=== PATIENT | female | born 1995 | race Caucasian/White ===

== ENCOUNTER 2018-10-23 17:42 | Emergency (ER) | payer SELFPAY ==
--- NOTE | 2018-10-23 18:32 | EDM.PDOC ---
ED HPI GENERAL MEDICAL PROBLEM - General Chief Complaint: Gastrointestinal Problem Stated Complaint: WEAK,THROWING UP/ABSCESSED TOOTH Time Seen by Provider: 10/23/18 18:22 Source of Information: Reports: Patient History Limitations: Reports: No Limitations - History of Present Illness INITIAL COMMENTS - FREE TEXT/NARRATIVE: Patient is a 23-year-old female who presents to the ED complaining of diarrhea, nausea vomiting, and abscess to the right lower molar. States she's had gastroenteritis symptoms for the past 2 days. Symptoms are improving. States she called into work today thus is requesting a doctor's note. She has been drinking fluids with no further nausea or vomiting. In addition she has a tooth that is fractured off at the base of the gumline. Area is tender and swollen. She has no appointment scheduled with a dentist as of yet. Patient denies any fever, abdominal pain, dysuria, hematuria, bloody stool, bloody emesis, sore throat, difficulty swallowing, sinus congestion, runny nose, headache, nuchal rigidity, rash, and/or any additional complaints. Duration: Waxing/Waning Right Lower Tooth/Teeth Pain Score (Numeric/FACES): 9 - Related Data Allergies Allergy/AdvReac Type Severity Reaction Status Date / Time No Known Allergies Allergy Verified 07/19/18 12:24 Home Meds: Home Meds Ondansetron [Zofran ODT] 4 mg PO Q6H PRN #10 tab.dis 10/23/18 [Rx] Penicillin V Potassium 500 mg PO Q6HR #40 tab 10/23/18 [Rx] Past Medical History - Past Health History Medical/Surgical History: Denies Medical/Surgical History [employer] History: Reports: Social & Family History - Tobacco Use Smoking Status *Q: Never Smoker Second Hand Smoke Exposure: No - Caffeine Use Caffeine Use: Reports: Coffee - Recreational Drug Use Recreational Drug Use: No ED ROS GENERAL - Review of Systems Review Of Systems: ROS reveals no pertinent complaints other than HPI. ED EXAM, GI/ABD - Physical Exam Exam: See Below Exam Limited By: No Limitations General Appearance: Alert, WD/WN, No Apparent Distress Ears: Hearing Grossly Normal Nose: Normal Inspection Throat/Mouth: Normal Inspection, Normal Voice, No Airway Compromise, Other (31 tooth is broken off at the base with swelling along the gumline and tenderness present. No uvula deviation. No difficulty swallowing. No change in voice noted. ) Head: Atraumatic, Normocephalic Neck: Normal Inspection, Supple, Non-Tender, Full Range of Motion. No: Carotid Bruit, Lymphadenopathy (L) Respiratory/Chest: No Respiratory Distress, Lungs Clear, Normal Breath Sounds, No Accessory Muscle Use, Chest Non-Tender Cardiovascular: Normal Peripheral Pulses, Regular Rate, Rhythm, No Murmur GI/Abdominal Exam: Normal Bowel Sounds, Soft, Non-Tender, No Organomegaly, No Distention Back Exam: Normal Inspection Neurological: Alert, Oriented, CN II-XII Intact, Normal Cognition, No Motor/ Sensory Deficits Psychiatric: Normal Affect, Normal Mood Skin Exam: Warm, Dry, Intact, Normal Color, No Rash Course - Vital Signs Last Recorded V/S: Last Vital Signs Temp 98.6 F 10/23/18 18:40 Pulse 74 10/23/18 18:40 Resp 16 10/23/18 18:40 BP 94/70 10/23/18 18:40 Pulse Ox 97 10/23/18 18:40 - Re-Assessments/Exams Free Text/Narrative Re-Assessment/Exam: Patient request a doctor's note for today. In addition her examination was benign minus the infected tooth to the right lower jawline. I will discharge patient home with instructions for gastroenteritis and also tooth abscess. Prescription for penicillin and Zofran have been provided. Return precautions were discussed with the patient. She had no further concerns. She agreed with plan. Departure - Departure Time of Disposition: 18:26 Disposition: Home, Self-Care 01 Condition: Good Clinical Impression: Abscess of pulp of tooth, Gastroenteritis, Vomiting, Gastroenteritis - Discharge Information Prescriptions: Penicillin V Potassium 500 mg PO Q6HR #40 tab Ondansetron [Zofran ODT] 4 mg PO Q6H PRN #10 tab.dis PRN Reason: Nausea/Vomiting Instructions: Viral Gastroenteritis, Adult, [id number], Food Choices to Help Relieve Diarrhea, Adult, Diet and Dental Disease, Nausea and Vomiting, Adult Referrals: PCP,None [Primary Care Provider] - Forms: ED Department Discharge, ED Return to Work/School Form Additional Instructions: Follow instructions per the education materials for gastroenteritis. Utilize the Zofran as prescribed. For dental infection take the penicillin as prescribed. Utilize Tylenol and ibuprofen in alternating fashion for discomfort. Suggest taking a or [id number] probiotic while on the antibiotic. Follow-up with dentist or oral surgeon or your choice for definitive treatment. Return to the ED for any new or worsening symptoms.
== END 2018-10-23 18:40 | disposition home or self-care (01) ==
LOC: JD.ED 17:42
DX: K52.9 Noninfective gastroenteritis and colitis, unspecified (principal); K04.7 Periapical abscess without sinus; K03.81 Cracked tooth
CPT/HCPCS: 99283

== ENCOUNTER 2018-10-25 13:30 | Emergency (ER) | payer SELFPAY ==
--- NOTE | 2018-10-25 13:56 | EDM.PDOC ---
<Brayan Stone - Last Filed: 10/25/18 15:38> ED HPI GENERAL MEDICAL PROBLEM - General Chief Complaint: Gastrointestinal Problem Stated Complaint: DIARRHEA Time Seen by Provider: 10/25/18 13:54 - History of Present Illness INITIAL COMMENTS - FREE TEXT/NARRATIVE: Pt is a 23 year old female who presents to the ED complaining of diarrhea, nausea for the past 4 days as well as increase in pain of the right lower molar due to abscess. She is requesting a doctor's note for an excused absents from work. She was seen on Tuesday10/23/18 for similar gastrointestinal symptom and pain related to her abscess whis has developed from a partially removed right second lower molar which is in need of root canal. During her visit on Tuesday she treated with zofran and penicillin V and discharged. Over the past couple days her symptoms a have not improved. She admits to have had at least 7 bouts of diarrhea during the day and at least 3 times during the night every day for the past 3 days. Diarrhea is described as a "watery" and non-bloody. She has had some improvement with Imodium Q6. She has developed subjective fever, chills , dizziness, lightheadedness, decrease fluid intake,decreased urine output, and generalized weakness. She denies abdominal pain, blood in her stool, dysphagia, nausea, vomiting, dysuria, neck stiffness, or rash. Her dental pain has also progressed over the past couple of days. She states that her pain has spread with tenderness and swelling underneath her jaw and to the anterior portion of her neck. She denies odynophagia, discoloration of overlying skin, or difficulty breathing. Overall, she feels unwell and is concerned about her absence from work. She has been concerned about possibly being and presents today with tests which she says have been negative. Menses have been regular with normal flow and without pain. Onset Date: 10/22/18 (evening) Duration: Getting Worse Location: Reports: Other (Diarrhea) Quality: Reports: Other (Watery Diarrhea. Non bloody. No abdominal pain) Severity: Moderate Improves with: Reports: Other (Immodium) Worsens with: Reports: None Context: Denies: Activity, Exercise, Lifting, Sick Contact, Trauma Associated Symptoms: Reports: Fever/Chills, Loss of Appetite, Weakness. Denies : Chest Pain, cough w sputum, Headaches, Malaise, Rash, Shortness of Breath, Syncope - Related Data Allergies Allergy/AdvReac Type Severity Reaction Status Date / Time No Known Allergies Allergy Verified 07/19/18 12:24 Home Meds: Home Meds Ondansetron [Zofran ODT] 4 mg PO Q6H PRN #10 tab.dis 10/23/18 [Rx] Penicillin V Potassium 500 mg PO Q6HR #40 tab 10/23/18 [Rx] Dicyclomine [Bentyl] 20 mg PO Q6H PRN #8 tablet 10/25/18 [Rx] Doxycycline [Vibramycin] 100 mg PO BID #16 cap 10/25/18 [Rx] ED ROS GENERAL - Review of Systems Review Of Systems: See Below Constitutional: Reports: Fever, Chills, Weakness, Decreased Appetite, Weight Loss. Denies: Diaphoresis HEENT: Reports: Dental Pain (see hpi), Throat Pain. Denies: Ear Pain, Rhinitis , Sinus Problem, Throat Swelling, Vision Change Respiratory: Reports: No Symptoms. Denies: Shortness of Breath, Wheezing, Pleuritic Chest Pain, Cough, Sputum, Hemoptysis Cardiovascular: Reports: Lightheadedness. Denies: Chest Pain, Dyspnea on Exertion, Edema, Palpitations, Syncope Endocrine: Denies: Fatigue, Polydypsia, Polyuria GI/Abdominal: Reports: Diarrhea (see HPI), Decreased Appetite, Nausea (mild at times. Improves with zofran). Denies: Black Stool, Bloody Stool, Constipation, Difficulty Swallowing, Flatus, Hematemesis, Hematochezia, Melena, Mucous in Stool, Stool Incontinence, Vomiting : Reports: No Symptoms. Denies: Dysuria, Flank Pain Musculoskeletal: Reports: No Symptoms, Other (TMJ full range fo motion). Denies : Neck Pain Skin: Reports: Erythema. Denies: Pallor, Diaphoresis, Dryness, Bruising, Pruritis, Rash Neurological: Reports: No Symptoms. Denies: Dizziness, Headache, Numbness, Paresthesia, Syncope, Tingling, Weakness Psychiatric: Reports: No Symptoms Hematologic/Lymphatic: Reports: No Symptoms Immunologic: Reports: No Symptoms ED EXAM, GI/ABD - Physical Exam Exam: See Below Exam Limited By: No Limitations General Appearance: Alert, WD/WN, No Apparent Distress Eyes: Bilateral: Normal Appearance, EOMI Ears: Normal External Exam, Normal TMs Nose: Normal Inspection, Normal Mucosa Throat/Mouth: Other (Right lower mandibule with exudate covering 2nd molar. Mmoderate erythema around margin of abcent tooth. Phyrnx without erythema or exudate). No: Dysphagia Head: Atraumatic, Normocephalic Neck: Non-Tender (Sub mandibular), Full Range of Motion, Lymphadenopathy (R) Respiratory/Chest: No Respiratory Distress, Lungs Clear, Normal Breath Sounds, No Accessory Muscle Use, Chest Non-Tender. No: Wheezing Cardiovascular: Normal Peripheral Pulses, Regular Rate, Rhythm, No Edema, No Gallop, No JVD, No Murmur, No Rub GI/Abdominal Exam: Normal Bowel Sounds, Soft, Non-Tender, No Organomegaly, No Distention, No Mass (Female) Exam: Deferred Rectal (Female) Exam: Deferred Back Exam: Normal Inspection, Full Range of Motion Extremities: Normal Inspection, Normal Range of Motion, Non-Tender, No Pedal Edema, Normal Capillary Refill Neurological: Alert, Oriented, CN II-XII Intact, Normal Cognition, Normal Reflexes, No Motor/Sensory Deficits Psychiatric: Normal Affect, Normal Mood Skin Exam: Warm, Intact, Normal Color, No Rash Lymphatic: Adenopathy (Right submandibular) Course - Vital Signs Last Recorded V/S: Last Vital Signs Temp 36.6 C 10/25/18 13:42 Pulse 63 10/25/18 13:42 Resp 20 10/25/18 13:42 BP 101/72 10/25/18 13:42 Pulse Ox 100 10/25/18 13:42 Orthostatic Blood Pressure [ 105/57 Standing] Orthostatic Blood Pressure [ 100/55 Supine] - Orders/Labs/Meds Orders: Active Orders 24 hr Category Date Time Status Orthostatic Vital Signs [RC] ASDIRECTED Care 10/25/18 13:54 Active CULTURE STOOL + SHIGATOX [RM] Stat Lab 10/25/18 14:21 Ordered WBC, STOOL [OP] Stat Lab 10/25/18 14:21 Ordered Labs: Laboratory Tests 10/25/18 10/25/18 Range/Units 14:50 14:50 WBC 6.22 (3.98-10.04) K/mm3 RBC 4.71 (3.98-5.22) M/mm3 Hgb 13.8 (11.2-15.7) gm/L Hct 41.6 (34.1-44.9) % MCV 88.3 (79.4-94.8) fl MCH 29.3 (25.6-32.2) pg MCHC 33.2 (32.2-35.5) g/dl RDW Std Deviation 40.0 (36.4-46.3) fL Plt Count 227 (182-369) K/mm3 MPV 10.6 (9.4-12.3) fl Neut % (Auto) 48.6 (34.0-71.1) % Lymph % (Auto) 33.8 (19.3-51.7) % [place] % (Auto) 11.6 (4.7-12.5) % Eos % (Auto) 5.5 (0.7-5.8) Baso % (Auto) 0.5 (0.1-1.2) % Neut # (Auto) 3.03 (1.56-6.13) K/mm3 Lymph # (Auto) 2.10 (1.18-3.74) K/mm3 [place] # (Auto) 0.72 H (0.24-0.36) K/mm3 Eos # (Auto) 0.34 (0.04-0.36) K/mm3 Baso # (Auto) 0.03 (0.01-0.08) K/mm3 Sodium 142 (136-145) mEq/L Potassium 3.6 (3.5-5.1) mEq/L Chloride 107 (98-107) mEq/L Carbon Dioxide 24 (21-32) mEq/L Anion Gap 14.6 (5-15) BUN 7 (7-18) mg/dL Creatinine 0.8 (0.55-1.02) mg/dL Est Cr Clr Drug Dosing 77.89 mL/min Estimated GFR (MDRD) > 60 (>60) mL/min BUN/Creatinine Ratio 8.8 L (14-18) Glucose 91 (74-106) mg/dL Calcium 8.5 (8.5-10.1) mg/dL Total Bilirubin 0.2 (0.2-1.0) mg/dL AST 20 (15-37) U/L ALT 22 (14-59) U/L Alkaline Phosphatase 84 (46-116) U/L Total Protein 7.5 (6.4-8.2) g/dl Albumin 3.7 (3.4-5.0) g/dl Globulin 3.8 gm/dL Albumin/Globulin Ratio 1.0 (1-2) Meds: Medications Discontinued Medications Generic Name Dose Route Start Last Admin Trade Name Freq PRN Reason Stop Dose Admin Dextrose/Lactated Ringer's 1,000 mls @ 999 mls/hr 10/25/18 14:30 10/25/18 14: 56 Dextrose 5%-Lactated Ringers IV 999 mls/hr ASDIRECTED CHELSEA Administration Departure - Departure Disposition: Home, Self-Care 01 Clinical Impression: Viral gastroenteritis, Abscess of pulp of tooth - Discharge Information Prescriptions: Dicyclomine [Bentyl] 20 mg PO Q6H PRN #8 tablet PRN Reason: Abdominal cramps/diarrhea Doxycycline [Vibramycin] 100 mg PO BID #16 cap Instructions: Viral Gastroenteritis, Adult, [id number] Referrals: PCP,None [Primary Care Provider] - Forms: ED Department Discharge, ED Return to Work/School Form Additional Instructions: Evaluation the emergent today in regards to persistent diarrhea which appears to be viral gastroenteritis. Lab tests don't show any major abnormalities in the blood work for electrolyte imbalances. Diet should be clear fluids primarily Gatorade/Powerade as is very similar to what sent IV fluids. He should avoid all caffeine products as they tend to make the bowels work harder. He should avoid all milk and dairy products until stools are formed back up. Also should avoid apple juice and grape juice as they tend to make diarrhea worse. Most of the juices or well tolerated such as V8 as you discussed. May use Bentyl 20 mg every 6 hours needed for relief of abdominal cramping pain and it will reduce the diarrhea as well. In regards to your dental abscess suggest stopping the Pen-Vee K for now since it may make diarrhea worse. He place it with doxycycline 100 mg twice daily for the next 8 days to clear up dental infection. Note provided to excuse her from the work place for at least another 2 days including today. This is until you can get back on eating regular food. Agree should try soda crackers. May advance then to jam on toast. Kristen was fine at any time. Then advance to broth soups and then chicken rice/turkey noodle-type soup etc. 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: - Past Surgical History HEENT Surgical History: Reports: Other (See Below) Other HEENT Surgeries/Procedures: dental abcess Social & Family History - Tobacco Use Smoking Status *Q: Never Smoker - Caffeine Use Caffeine Use: Reports: Energy Drinks, Soda - Recreational Drug Use Recreational Drug Use: No Course - Orders/Labs/Meds Orders: Active Orders 24 hr Category Date Time Status Orthostatic Vital Signs [RC] ASDIRECTED Care 10/25/18 13:54 Active CULTURE STOOL + SHIGATOX [RM] Stat Lab 10/25/18 14:21 Ordered WBC, STOOL [OP] Stat Lab 10/25/18 14:21 Ordered Labs: Laboratory Tests 10/25/18 10/25/18 Range/Units 14:50 14:50 WBC 6.22 (3.98-10.04) K/mm3 RBC 4.71 (3.98-5.22) M/mm3 Hgb 13.8 (11.2-15.7) gm/L Hct 41.6 (34.1-44.9) % MCV 88.3 (79.4-94.8) fl MCH 29.3 (25.6-32.2) pg MCHC 33.2 (32.2-35.5) g/dl RDW Std Deviation 40.0 (36.4-46.3) fL Plt Count 227 (182-369) K/mm3 MPV 10.6 (9.4-12.3) fl Neut % (Auto) 48.6 (34.0-71.1) % Lymph % (Auto) 33.8 (19.3-51.7) % [place] % (Auto) 11.6 (4.7-12.5) % Eos % (Auto) 5.5 (0.7-5.8) Baso % (Auto) 0.5 (0.1-1.2) % Neut # (Auto) 3.03 (1.56-6.13) K/mm3 Lymph # (Auto) 2.10 (1.18-3.74) K/mm3 [place] # (Auto) 0.72 H (0.24-0.36) K/mm3 Eos # (Auto) 0.34 (0.04-0.36) K/mm3 Baso # (Auto) 0.03 (0.01-0.08) K/mm3 Sodium 142 (136-145) mEq/L Potassium 3.6 (3.5-5.1) mEq/L Chloride 107 (98-107) mEq/L Carbon Dioxide 24 (21-32) mEq/L Anion Gap 14.6 (5-15) BUN 7 (7-18) mg/dL Creatinine 0.8 (0.55-1.02) mg/dL Est Cr Clr Drug Dosing 77.89 mL/min Estimated GFR (MDRD) > 60 (>60) mL/min BUN/Creatinine Ratio 8.8 L (14-18) Glucose 91 (74-106) mg/dL Calcium 8.5 (8.5-10.1) mg/dL Total Bilirubin 0.2 (0.2-1.0) mg/dL AST 20 (15-37) U/L ALT 22 (14-59) U/L Alkaline Phosphatase 84 (46-116) U/L Total Protein 7.5 (6.4-8.2) g/dl Albumin 3.7 (3.4-5.0) g/dl Globulin 3.8 gm/dL Albumin/Globulin Ratio 1.0 (1-2) Meds: Medications Discontinued Medications Generic Name Dose Route Start Last Admin Trade Name Freq PRN Reason Stop Dose Admin Dextrose/Lactated Ringer's 1,000 mls @ 999 mls/hr 10/25/18 14:30 10/25/18 14: 56 Dextrose 5%-Lactated Ringers IV 999 mls/hr ASDIRECTED CHELSEA Administration - Radiology Interpretation Free Text/Narrative:: 23-year-old female presents to the ED due to persistent diarrhea. Concern is whether or not current antibiotic therapy being used for dental abscesses continued into the diarrhea. Mid abdominal cramping pain and stool is loose and watery and yellow in color without blood. Intermittent diffuse lower abdominal cramping pain. Patient is currently using Imodium the last 2 days and his diarrhea is somewhat improved. However she is still drinking milk products and drinking apple juice which is making the diarrhea persisted and last longer than normal. Is here for review and to make sure she doesn't have any major molecular light imbalance and for rehydration. She has a stool while she is here it will be collected for WBCs culture and C. difficile. Benign abdominal examination. Patient was seen and examined with PA student Reese Stone. Treatment plan and investigations ordered by me. - Re-Assessments/Exams Free Text/Narrative Re-Assessment/Exam: 10/25/18 15:39 White count is normal at 6.22. Differential shows automated differential of 48% neutrophils and 33% lymphocytes. Hemoglobin is 13.8 with hematocrit of 41.6. Platelet count normal 227,000. Sodium is 142 with a potassium of 3.6. Chloride 107 with a bicarbonate of 24. And a gap is normal at 14.6. B1 is 7 with a creatinine of 0.8. GFR is greater than 60. Glucose is 91. Calcium normal 8.5. Liver function normal. Total protein 7.5 with a no been fraction of 3.7. Labs are completely normal. states she is feeling better after IV fluids. He completed a full liter. No major electrolyte imbalances she' ll be discharged to home. We did change her diet as she was still drinking milk products and taking apple juice which is causing the diarrhea to be prolonged. He was advised about clear fluids such as Gatorade Powerade and V8 juice is okay as well. We'll place her on Bentyl 20 mg every 6 hours needed for relief of a dull cramping pain and it will ease up some of the diarrhea. She has a dental abscess right lower first molar tooth is broken off even with the gingiva margin and she's on Pen-Vee K which may aggravate the diarrhea. We'll discontinue this simply replaced with doxycycline 100 mg twice daily which is unlikely to make the diarrhea worse. Note given to excuse her from the work place for the next 2 days including today. Of note the patient never did have a stool while she was in the department and therefore no cultures were obtained. Lab strongly suggest that this is a viral gastroenteritis. Departure - Departure Time of Disposition: 15:51 Condition: Fair - Discharge Information *PRESCRIPTION DRUG MONITORING PROGRAM REVIEWED*: Not Applicable *COPY OF PRESCRIPTION DRUG MONITORING REPORT IN PATIENT ELI: Not Applicable - My Orders Last 24 Hours: My Active Orders 10/25/18 13:54 Orthostatic Vital Signs [RC] ASDIRECTED - Assessment/Plan Last 24 Hours: My Active Orders 10/25/18 13:54 Orthostatic Vital Signs [RC] ASDIRECTED
[2018-10-25] MEDS ORDERED: Dextrose 5%-Lactated Ringers 1,000 ML IV SCH (14:30)
== END 2018-10-25 16:15 | disposition home or self-care (01) ==
LOC: JD.ED 13:30
DX: A08.4 Viral intestinal infection, unspecified (principal); K04.01 Reversible pulpitis
CPT/HCPCS: 36415; 80053; 85025; 96360; 99284; J7042

== ENCOUNTER 2019-09-05 17:14 | Emergency (ER) | payer SELFPAY ==
--- NOTE | 2019-09-05 18:05 | EDM.PDOC ---
<Yolanda Zapata - Last Filed: 09/05/19 17:57> ED HPI GENERAL MEDICAL PROBLEM - General Chief Complaint: Upper Extremity Injury/Pain Stated Complaint: LT WRIST INJURY Time Seen by Provider: 09/05/19 17:37 Source of Information: Reports: Patient History Limitations: Reports: No Limitations - History of Present Illness INITIAL COMMENTS - FREE TEXT/NARRATIVE: 24-year-old female presents with left wrist pain that started 3 days ago while picking up an espresso machine. While picking up the machine, she felt her wrist pop but there was no immediate pain. The pain has been worsening over the past 3 days, making work much more difficult for her. The pain is located in the middle of her wrist and it does not radiate. There is noticeable swelling over the wrist. She has not noticed any bruising or erythema. She has tried icing the area but states it is difficult for her to keep it on long enough due to pain from the cold. She did state that heat from the shower does relieve some of the pain. She has not tried any medications or bracing for the pain. Onset: Sudden Duration: Day(s): (3 ), Getting Worse Location: Reports: Upper Extremity, Left Quality: Reports: Ache Severity: Moderate Improves with: Reports: None Worsens with: Reports: Movement (mostly with flexion, some with extension ) Associated Symptoms: Reports: No Other Symptoms Left Wrist Pain Score (Numeric/FACES): 8 - Related Data Allergies Allergy/AdvReac Type Severity Reaction Status Date / Time No Known Allergies Allergy Verified 09/05/19 17:38 Home Meds: Home Meds . 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 Denies: Neck Pain, Shoulder Pain, Arm Pain, Hand Pain Skin: Reports: No Symptoms Neurological: Reports: Numbness (rarely, usually in the morning right after waking ). Denies: Tremors Psychiatric: Reports: No Symptoms ED EXAM, GENERAL - Physical Exam Exam: See Below Exam Limited By: No Limitations General Appearance: Alert, WD/WN, No Apparent Distress Cardiovascular: Normal Peripheral Pulses Peripheral Pulses: 3+: Radial (L) Extremities: Normal Capillary Refill, Joint Swelling, Limited Range of Motion, Other (tenderness over middle of left wrist both dorsal and anterior). No: Increased Warmth, Pallor, Redness Neurological: Alert, Oriented, Normal Cognition, No Motor/Sensory Deficits Psychiatric: Normal Affect, Normal Mood Skin Exam: Warm, Dry, Intact, Normal Color, No Rash Course - Vital Signs Last Recorded V/S: Last Vital Signs Temp 97.6 F 09/05/19 17:35 Pulse 64 09/05/19 17:35 Resp 16 09/05/19 17:35 BP 120/65 09/05/19 17:35 Pulse Ox 100 09/05/19 17:35 Departure - Departure Disposition: Home, Self-Care 01 Clinical Impression: Left wrist sprain - Discharge Information Instructions: Wrist Splint, Adult, [id number] Referrals: Shantel Brandon MD [Primary Care Provider] - Forms: ED Department Discharge, ED Return to Work/School Form Additional Instructions: earl wrap, tylenol or ibuprofen q 6 to 8 hr as needed for discomfort, try avoid heavy lifting as best you can. Follow-up clinic if not much better within 5-7 days as expected. Sepsis Event Note - Evaluation Sepsis Screening Result: No Definite Risk - Focused Exam Date Exam was Performed: 09/05/19 Time Exam was Performed: 17:57 <Israel Haque - Last Filed: 09/06/19 08:13> Course - Re-Assessments/Exams Free Text/Narrative Re-Assessment/Exam: 09/06/19 08:10 Initial hx and exam was done by LESLIE Nice student. I agree with her hx and exam as documented. X rays do not show acute fx not would that be expected from mechanism of injury. Have earl wrapped wrist. Lifting restriction for work. Discharge instr. as documented. Departure - Departure Time of Disposition: 19:01 Condition: Fair Sepsis Event Note - Focused Exam Date Exam was Performed: 09/06/19 Time Exam was Performed: 08:10
--- NOTE | 2019-09-06 07:04 | CR ---
Left wrist: Four views of the left wrist were obtained. Comparison: No previous wrist exam. Joint spaces are preserved. No fracture, dislocation or other bony abnormality is appreciated. Impression: 1. No abnormality is identified on left wrist exam. Diagnostic code #1 Study was dictated in [place] Standard Time
== END 2019-09-05 19:10 | disposition home or self-care (01) ==
LOC: JD.ED 17:14
DX: S63.502A Unspecified sprain of left wrist, initial encounter (principal); X50.9XXA Other and unspecified overexertion or strenuous movements or postures, initial encounter
CPT/HCPCS: 73110-26-LT; 73110-LT; 99283-25

== ENCOUNTER 2019-10-10 08:19 | Emergency (ER) | payer SELFPAY ==
--- NOTE | 2019-10-10 08:43 | EDM.PDOC ---
ED HPI GENERAL MEDICAL PROBLEM - General Chief Complaint: ENT Problem Stated Complaint: SORE THROAT Time Seen by Provider: 10/10/19 08:43 Source of Information: Reports: Patient History Limitations: Reports: No Limitations - History of Present Illness INITIAL COMMENTS - FREE TEXT/NARRATIVE: 4-year-old female presents to the ED with chief complaint of sore throat and loss of voice. Associated nasal congestion for the better part of 3 weeks with a paroxysmal reductive sounding cough. Throat is sore from coughing. She states she was up most of the night coughing last night. Voice is croaky. Not aware of any high fevers. Diet remains poor Onset: Unknown/Unsure (Started about 3 weeks ago and is persisted.) Onset Date: 09/22/19 Duration: Week(s):, Getting Worse Location: Reports: Neck, Chest (Throat says nonproductive cough), Other (Nasal/ sinus congestion.) Quality: Reports: Pressure, Other Severity: Moderate (Cough) Improves with: Reports: None Worsens with: Reports: Other Context: Reports: Other (Respiratory tract infection is many of her kids have been sick as well.). Denies: Activity (Down exposure to cool night air will make the cough worse.), Exercise, Lifting, Sick Contact, Trauma Associated Symptoms: Reports: Chest Pain, Cough, cough w sputum, Fever/Chills, Malaise. 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 Throat Pain Score (Numeric/FACES): 9 - Related Data Allergies Allergy/AdvReac Type Severity Reaction Status Date / Time No Known Allergies Allergy Verified 09/05/19 17:38 Home Meds: Home Meds Cephalexin [Keflex] 500 mg PO TID #24 capsule 10/10/19 [Rx] Hydrocodone/Chlorphen P-Stirex [Hydrocodone-Chlorphen ER Susp] 5 ml PO DAILY # 40 ml 10/10/19 [Rx] Loratadine/Pseudoephedrine [Claritin-D 12 Hour] 1 tab PO Q12HR #6 tab.er [Rx] Past Medical History - Past Health History Medical/Surgical History: Denies 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 Denies: Ear Discharge, Ear Pain, Glasses, Hearing Loss Respiratory: Reports: Shortness of Breath, Cough, Sputum Cardiovascular: Reports: Chest Pain. Denies: Blood Pressure Problem, Claudication (From coughing.), Edema, Lightheadedness, Orthopnea Endocrine: Reports: Fatigue GI/Abdominal: Reports: Decreased Appetite : Reports: No Symptoms Musculoskeletal: Reports: No Symptoms Skin: Reports: No Symptoms Neurological: Reports: Paresthesia ED EXAM, ENT - Physical Exam Exam: See Below Exam Limited By: No Limitations General Appearance: Alert, WD/WN, Other (Is a very hoarse voice. Vital signs show she is afebrile at 36.8 degrees pulse is 79 and sinus. Respiratory is 20 with O2 sats of 90% on room air.) Eye Exam: Bilateral Eye: Normal Inspection, PERRL Ears: Normal TMs Nose: Other (Nose is very congested particular on the left side with mild swelling of the superior and turbinates. Nasal polyps noted.) Mouth/Throat: Normal Inspection, Normal Gums, Normal Lips, Normal Oropharynx, Hoarse Voice, Other (Diffuse). No: Tonsillar Swelling Head: Atraumatic ( posterior oropharyngeal erythema without exudate.), Normocephalic Neck: Normal Inspection, Supple, Non-Tender, Full Range of Motion. No: Lymphadenopathy (L), Lymphadenopathy (R) Respiratory/Chest: No Respiratory Distress, No Accessory Muscle Use, Rhonchi ( Upper anterior chest that clear with coughing.) Cardiovascular: Normal Peripheral Pulses, Regular Rate, Rhythm, No Edema, No Gallop, No Murmur, No Rub GI/Abdominal: Normal Bowel Sounds, Soft, Non-Tender, No Organomegaly Extremities: Normal Inspection, Normal Range of Motion, Non-Tender Neurological: Alert, Oriented, CN II-XII Intact, Normal Cognition Psychiatric: Normal Affect, Normal Mood Skin: Warm, Dry, Intact, Normal Color, No Rash Course - Vital Signs Last Recorded V/S: Last Vital Signs Temp 36.8 C 10/10/19 08:29 Pulse 79 10/10/19 08:29 Resp 20 10/10/19 08:29 BP 129/75 10/10/19 08:29 Pulse Ox 98 10/10/19 08:29 - Orders/Labs/Meds Orders: Active Orders 24 hr Category Date Time Status Chest 1V Frontal [CR] Stat Exams 10/10/19 08:42 Taken CULTURE STREP A CONFIRMATION [RM] Stat Lab 10/10/19 08:46 Results STREP SCRN A RAPID W CULT CONF [RM] Stat Lab 10/10/19 08:46 Results - Radiology Interpretation Free Text/Narrative:: 24-year-old female presents to the ED for evaluation of sore throat and paroxysmal cough that is been going on for the last 3 weeks. Associated sinus congestion and she is aware of postnasal drip. Them reveals diffuse sinus congestion. Ears are normal oropharynx is diffuse mild erythema without any exudate and tonsils are normal. Minimal cervical adenopathy at the submandibular glands. Plan 1 view chest x-ray to rule out pneumonia since she is been coughing paroxysmally for the better part of 3 weeks. Rapid strep screen ordered. - Re-Assessments/Exams Free Text/Narrative Re-Assessment/Exam: 10/10/19 09:21 last x-ray 1 view was negative for any signs of pneumonia. Rapid strep screen was negative. Plan she will be treated with cephalexin 500 mg 3 times daily for the next 8 days to clear up sinus congestion. Claritin-D 12-hour release 1 tablet every morning for the next 6 days and Penntuss cough syrup 5 mils at bedtime to help do his paroxysmal cough during the night. 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 Departure - Departure Time of Disposition: 09:09 Disposition: Home, Self-Care 01 Condition: Fair Clinical Impression: Cough in adult patient Sinusitis, acute Qualifiers: Sinusitis location: unspecified location Recurrence: non-recurrent Qualified Code(s): J01.90 - Acute sinusitis, unspecified - Discharge Information *PRESCRIPTION DRUG MONITORING PROGRAM REVIEWED*: Not Applicable *COPY OF PRESCRIPTION DRUG MONITORING REPORT IN PATIENT ELI: Not Applicable Prescriptions: Loratadine/Pseudoephedrine [Claritin-D 12 Hour] 1 tab PO Q12HR #6 tab.er Cephalexin [Keflex] 500 mg PO TID #24 capsule Hydrocodone/Chlorphen P-Stirex [Hydrocodone-Chlorphen ER Susp] 5 ml PO DAILY # 40 ml Instructions: Cough, Adult, [id number], Sinusitis, Adult, [id number] Referrals: Shantel Brandon MD [Primary Care Provider] - Forms: ED Department Discharge, ED Return to Work/School Form Additional Instructions: Evaluation in the emergency room today in regards to persistent upper respiratory tract infection with nasal congestion and suspect sinusitis with postnasal drip precipitating paroxysmal coughing. This also was causing sore throat. Rapid strep screen proved to be negative. Chest x-ray was also negative for any pneumonia. Suggest treatment to be plenty of hot liquids such as tea or coffee or soup which will help decongest the sinuses. Medication to be Claritin-D 12-hour release 1 tablet every morning for the next 6 days. Antibiotics to be cephalexin 500 mg 3 times daily for the next 8 days again to clean your sinus infection and bronchitis. Therapy is to be Penntuss 5 meals usually an hour before bedtime to help suppress cough during the night. Gradual improvement over the next 5 to 7 days. Sepsis Event Note - Evaluation Sepsis Screening Result: No Definite Risk - Focused Exam Vital Signs: Vital Signs Temp Pulse Resp BP Pulse Ox 10/10/19 08:29 36.8 C 79 20 129/75 98 Date Exam was Performed: 10/10/19 Time Exam was Performed: 09:15 - My Orders Last 24 Hours: My Active Orders 10/10/19 08:42 Chest 1V Frontal [CR] Stat 10/10/19 08:46 CULTURE STREP A CONFIRMATION [RM] Stat STREP SCRN A RAPID W CULT CONF [RM] Stat - Assessment/Plan Last 24 Hours: My Active Orders 10/10/19 08:42 Chest 1V Frontal [CR] Stat 10/10/19 08:46 CULTURE STREP A CONFIRMATION [RM] Stat STREP SCRN A RAPID W CULT CONF [RM] Stat
--- NOTE | 2019-10-10 08:45 | EDM.PDOC ---
<Rosaura Tran - Last Filed: 10/10/19 08:52> ED HPI GENERAL MEDICAL PROBLEM - General Chief Complaint: ENT Problem Stated Complaint: SORE THROAT Time Seen by Provider: 10/10/19 08:30 Source of Information: Reports: Patient History Limitations: Reports: No Limitations - History of Present Illness INITIAL COMMENTS - FREE TEXT/NARRATIVE: Patient is a pleasant 24-year-old female who presents to the ED today for three weeks of productive cough, congestion, sore throat, and headache. She reports her symptoms have progressively worsened over the last three days and that is what brings her here today. When she coughs she reports she brings up light green sputum. Her chest muscles are sore from coughing. She denies chest pain. She has tried Mucinex at home over the last week, she states this has not helped much. She denies fever, nausea, vomiting, body aches, and shortness of breath. She did receive the Influenza vaccine this year. 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 Denies: Fever, Chills, Weakness, Decreased Appetite HEENT: Reports: Rhinitis, Sinus Problem, Throat Pain. Denies: Ear Pain, Vertigo Respiratory: Reports: Cough, Sputum (light green). Denies: Shortness of Breath , Wheezing, Hemoptysis Cardiovascular: Reports: No Symptoms, Edema. Denies: Chest Pain, Lightheadedness, Syncope GI/Abdominal: Reports: No Symptoms. Denies: Abdominal Pain, Diarrhea, Nausea, Vomiting Musculoskeletal: Reports: No Symptoms. Denies: Neck Pain, Back Pain, Muscle Pain Skin: Reports: No Symptoms. Denies: Rash, Erythema Neurological: Reports: Headache. Denies: Dizziness, Syncope Psychiatric: Reports: No Symptoms ED EXAM, ENT - Physical Exam Exam: See Below Exam Limited By: No Limitations General Appearance: Alert, WD/WN, No Apparent Distress Eye Exam: Bilateral Eye: Normal Inspection, PERRL Ears: Normal External Exam, Normal Canal, Hearing Grossly Normal, TM Fluid ( bilateral). No: TM Bulging, TM Dullness, TM Erythema Nose: Normal Inspection, Normal Mucousa, No Blood, Clear Rhinorrhea Mouth/Throat: Normal Inspection, Normal Gums, Normal Lips, Normal Teeth, Pharyngeal Erythema, Tonsillar Erythema, Other (Post nasal drainage). No: Tonsillar Exudates Head: Atraumatic, Normocephalic Neck: Normal Inspection, Supple, Non-Tender, Full Range of Motion Respiratory/Chest: No Respiratory Distress, No Accessory Muscle Use, Chest Non- Tender, Rhonchi (right lower lobe). No: Rales, Wheezing Cardiovascular: Normal Peripheral Pulses, Regular Rate, Rhythm, No Edema, No Gallop, No Murmur, No Rub GI/Abdominal: Normal Bowel Sounds, Soft, Non-Tender, No Organomegaly, No Distention, No Mass Back: Normal Inspection, Full Range of Motion Extremities: Normal Inspection, Normal Range of Motion, Non-Tender, No Pedal Edema, Normal Capillary Refill Neurological: Alert, Oriented, Normal Cognition, Normal Gait, No Motor/Sensory Deficits Psychiatric: Normal Affect, Normal Mood Skin: Warm, Dry, Intact, Normal Color, No Rash. No: Erythema Lymphatic: No Adenopathy Course - Vital Signs Last Recorded V/S: Last Vital Signs Temp 36.8 C 10/10/19 08:29 Pulse 79 10/10/19 08:29 Resp 20 10/10/19 08:29 BP 129/75 10/10/19 08:29 Pulse Ox 98 10/10/19 08:29 - Orders/Labs/Meds Orders: Active Orders 24 hr Category Date Time Status CULTURE STREP A CONFIRMATION [RM] Stat Lab 10/10/19 08:46 Results STREP SCRN A RAPID W CULT CONF [RM] Stat Lab 10/10/19 08:46 Results Departure - Departure Disposition: Home, Self-Care 01 Clinical Impression: Cough in adult patient Sinusitis, acute Qualifiers: Sinusitis location: unspecified location Recurrence: non-recurrent Qualified Code(s): J01.90 - Acute sinusitis, unspecified - Discharge Information Prescriptions: Loratadine/Pseudoephedrine [Claritin-D 12 Hour] 1 tab PO Q12HR #6 tab.er Cephalexin [Keflex] 500 mg PO TID #24 capsule Hydrocodone/Chlorphen P-Stirex [Hydrocodone-Chlorphen ER Susp] 5 ml PO DAILY # 40 ml Instructions: Cough, Adult, [id number], Sinusitis, Adult, [id number] Referrals: Shantel Brandon MD [Primary Care Provider] - Forms: ED Department Discharge, ED Return to Work/School Form Additional Instructions: Evaluation in the emergency room today in regards to persistent upper respiratory tract infection with nasal congestion and suspect sinusitis with postnasal drip precipitating paroxysmal coughing. This also was causing sore throat. Rapid strep screen proved to be negative. Chest x-ray was also negative for any pneumonia. Suggest treatment to be plenty of hot liquids such as tea or coffee or soup which will help decongest the sinuses. Medication to be Claritin-D 12-hour release 1 tablet every morning for the next 6 days. Antibiotics to be cephalexin 500 mg 3 times daily for the next 8 days again to clean your sinus infection and bronchitis. Therapy is to be Penntuss 5 meals usually an hour before bedtime to help suppress cough during the night. Gradual improvement over the next 5 to 7 days. Sepsis Event Note - Evaluation Sepsis Screening Result: No Definite Risk - Focused Exam Date Exam was Performed: 10/10/19 Time Exam was Performed: 08:52 - My Orders Last 24 Hours: My Active Orders 10/10/19 08:46 CULTURE STREP A CONFIRMATION [RM] Stat STREP SCRN A RAPID W CULT CONF [RM] Stat - Assessment/Plan Last 24 Hours: My Active Orders 10/10/19 08:46 CULTURE STREP A CONFIRMATION [RM] Stat STREP SCRN A RAPID W CULT CONF [RM] Stat <Vu Delgado - Last Filed: 10/10/19 20:59> ED HPI GENERAL MEDICAL PROBLEM - History of Present Illness Onset: Gradual Onset Date: 10/07/19 Duration: Day(s):, Getting Worse Location: Reports: Neck (Or throat), Other (And coughing for the last 2 weeks but it slowly getting better) Quality: Reports: Ache, Burning Severity: Moderate Improves with: Reports: None Worsens with: Reports: Medication Context: Reports: Other (Been sick with upper respiratory tract infection for the last 2 weeks. Is a congestion with postnasal drip). Denies: Activity ( Motrin helps somewhat.), Exercise, Lifting, Sick Contact, Trauma Associated Symptoms: Reports: Cough, cough w sputum (Usually in the mornings.), Loss of Appetite. 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 She has had a paroxysmal productive cough worse in the mornings that is slowly getting better. She developed a sore throat 3 days ago which is getting worse. She is aware of sinus congestion and postnasal drip. Examination reveals marked swelling of the mid middle and superior turbinates by the nose bilaterally without any polyp formation. The oropharynx is mildly inflamed diffusely but particularly posteriorly. Tonsils are normal. Mild cervical adenopathy in the submandibular glands. Chest is clear to osseous percussion. Plan she will have influenza screen rapid strep screen - Re-Assessments/Exams Free Text/Narrative Re-Assessment/Exam: 10/10/19 09:30: Rapid strep screen is negative. Clinically she has sinusitis with postnasal drip causing sore throat and productive cough. Treated with cephalexin 500 mg 3 times daily for the next 8 days. Claritin-D 12-hour release 1 tablet every morning for the next 6 days. And Penntuss cough syrup 5 mils at bedtime to alleviate cough x50 mils. Up with personal care provided if not markedly improved in 5 days time Departure - Departure Time of Disposition: 09:30 Sepsis Event Note - Focused Exam Date Exam was Performed: 10/10/19 Time Exam was Performed: 20:59
--- NOTE | 2019-10-10 09:30 | CR ---
Chest: Portable view of the chest was obtained. Comparison: No prior chest imaging. Heart size and mediastinum are normal. Lungs are clear. Bony structures are unremarkable. Impression: 1. Nothing acute is seen on portable chest x-ray. Diagnostic code #1 This report was dictated in [place] Standard Time
== END 2019-10-10 09:39 | disposition home or self-care (01) ==
LOC: JD.ED 08:19
DX: J01.90 Acute sinusitis, unspecified (principal)
CPT/HCPCS: 71045; 71045-26; 87081; 87430; 99283; 99284-25

== ENCOUNTER 2020-10-16 05:14 | Emergency (ER) | payer OTHER, MEDICAID ==
--- NOTE | 2020-10-16 05:46 | EDM.PDOC ---
ED HPI GENERAL MEDICAL PROBLEM - General Chief Complaint: Headache Stated Complaint: HEADACHES/NAUSEA Time Seen by Provider: 10/16/20 05:30 Source of Information: Reports: Patient History Limitations: Reports: No Limitations - History of Present Illness INITIAL COMMENTS - FREE TEXT/NARRATIVE: 25-year-old female presents to the ED complaining of persistent headache for over 3 weeks. Associated nausea that comes in waves throughout the day. She appreciates significant nasal congestion for the last several weeks. Greenish discharge when she blows her nose. She is aware of postnasal drip which she believes is making her nauseated at times. She appreciates the headaches are worse when she bends over and stands back up. No loss of balance or falls. Headache is primarily retro-orbital and bilateral. She also feels a persistent headache in the left vertex of her scalp. She has been using Flexeril tablets intermittently for headache relief but does not believe they are helping. Prior to 3 weeks ago she would get occasional headaches but never to the degree that they are constant. She has an intermittent nonproductive cough. Recent COVID- 19 screening last week was negative. Denies any pain in her cervical spine or neck. She denies any possibility of as she is on Depo-Provera injections every 3 months. Onset: Unknown/Unsure (Persistent headaches for over 3 weeks.) Duration: Week(s):, Chronic, Getting Worse (Essentially chronic daily headaches just getting worse over the last 3 weeks.) Location: Reports: Head, Face Quality: Reports: Ache, Other (Generalized headache both sides primarily retro- orbital and temporal bilaterally. Worse when she bends over and stands up.) Severity: Moderate Improves with: Reports: None Worsens with: Reports: Other (Vulvar) Context: Denies: Activity (.), Exercise, Lifting, Sick Contact, Trauma, Other Associated Symptoms: Reports: Cough, Headaches, Loss of Appetite, Malaise (Strick present illness.), Nausea/Vomiting (Nausea with occasional vomiting of). 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 Headache Pain Score (Numeric/FACES): 8 - Related Data Allergies Allergy/AdvReac Type Severity Reaction Status Date / Time No Known Allergies Allergy Verified 10/16/20 05:25 Home Meds: Home Meds Cyclobenzaprine [Flexeril] 5 mg PO TID PRN 10/16/20 [History] Doxycycline [Vibra-Tabs] 100 mg PO Q12HR #42 tab 10/16/20 [Rx] Loratadine/Pseudoephedrine [Claritin-D 12 Hour] 1 tab PO Q12HR #6 tab.er 10/16/20 [Rx] Meloxicam 15 mg PO DAILY #10 tablet 10/16/20 [Rx] Ondansetron [Zofran] 4 mg BUCCAL Q6H PRN #12 tab 10/16/20 [Rx] predniSONE [Prednisone] 20 mg PO ASDIRECTED #18 tablet 10/16/20 [Rx] Past Medical History - Past Health History Medical/Surgical History: Denies Medical/Surgical History HEENT History: Reports: Otitis Media - Infectious Disease History Infectious Disease History: Reports: None - Past Surgical History HEENT Surgical History: Reports: Other (See Below) Other HEENT Surgeries/Procedures: dental abcess Social & Family History - Family History Family Medical History: No Pertinent Family History - Tobacco Use Tobacco Use Status *Q: Never Tobacco User Second Hand Smoke Exposure: No - Caffeine Use Caffeine Use: Reports: Coffee, Energy Drinks, Soda, Tea - Recreational Drug Use Recreational Drug Use: No - Living Situation & Occupation Living situation: Reports: Single Occupation: Employed ED ROS GENERAL - Review of Systems Review Of Systems: See Below Constitutional: Reports: Malaise, Decreased Appetite. Denies: Fever, Chills, Weakness, Fatigue, Weight Loss HEENT: Reports: Rhinitis, Sinus Problem. Denies: Vertigo Respiratory: Reports: Cough. Denies: Shortness of Breath, Wheezing, Pleuritic Chest Pain (For the most part nonproductive.), Hemoptysis, Other Cardiovascular: Reports: No Symptoms Endocrine: Reports: No Symptoms GI/Abdominal: Reports: Nausea, Vomiting (Rare vomiting with bilious material.) : Reports: No Symptoms Musculoskeletal: Reports: Neck Pain Skin: Reports: No Symptoms Neurological: Reports: Headache. Denies: Confusion, Dizziness, Numbness, Paresthesia, Pre-Existing Deficit, Seizure, Syncope, Tingling (Chronic daily headache for the last 3 weeks.), Tremors, Trouble Speaking, Difficulty Walking, Weakness Psychiatric: Reports: No Symptoms. Denies: Agitation, Anxiety, Confusion, Cravings, Depression, Mood Lability, Suicidal Ideation Hematologic/Lymphatic: Reports: No Symptoms Immunologic: Reports: No Symptoms - Physical Exam Exam: See Below Exam Limited By: No Limitations General Appearance: Alert, WD/WN, No Apparent Distress, Other (Patient does sound very nasally congested. Temperature is 36.6 degrees. Pulse is 70 and sinus respiratory is 19 with O2 sats of 97% on room air. BP 100/63.) Eye Exam: Bilateral Eye: Normal Inspection, PERRL Ears: Other (Patient has a right serous otitis media. Left TM is normal.) Nose: No Blood, Nasal Swelling (Nasal swelling particularly on the right side with marked swelling of the superior and medial turbinates nearly occluding the nares. There is similar swelling on the left side of the nose but not near as occlusive.). No: Nasal Deformity Throat/Mouth: Normal Inspection, Normal Lips, Normal Teeth, Normal Oropharynx Head Exam: Atraumatic, Normocephalic, Facial Tenderness (Right maxillary sinus), Other (Is on compression) Neck: Normal Inspection, Supple ( medial superior orbits in the distribution of the ethmoid sinuses.), Non-Tender, Full Range of Motion. No: Lymphadenopathy (L), Lymphadenopathy (R) Respiratory/Chest: No Respiratory Distress, Lungs Clear, Normal Breath Sounds, No Accessory Muscle Use Cardiovascular: Normal Peripheral Pulses, Regular Rate, Rhythm, No Edema, No Gallop, No Murmur, No Rub GI/Abdominal: Normal Bowel Sounds, Soft, Non-Tender, No Organomegaly Neuro Exam (Abbreviated): Alert, Oriented, CN II-XII Intact, Normal Cognition Extremities: Normal Inspection, Normal Range of Motion Psychiatric: Normal Affect, Normal Mood Skin Exam: Warm, Dry, Intact, Normal Color, No Rash Course - Vital Signs Last Recorded V/S: Last Vital Signs Temp 36.6 C 10/16/20 05:23 Pulse 70 10/16/20 06:08 Resp 18 10/16/20 06:08 BP 100/60 10/16/20 06:08 Pulse Ox 99 10/16/20 06:08 - Orders/Labs/Meds Orders: Active Orders 24 hr Category Date Time Status Maxillofacial w/o CM [Max Facial Sinus wo Cont] [CT] Exams 10/16/20 05:42 Taken Stat Meds: Medications Discontinued Medications Generic Name Dose Route Start Last Admin Trade Name Bety PRN Reason Stop Dose Admin Ondansetron HCl 4 mg 10/16/20 06:03 10/16/20 06:07 Zofran Odt PO 10/16/20 06:04 4 mg ONETIME ONE Administration - Radiology Interpretation Free Text/Narrative:: 25-year-old female presents to the ED for evaluation of chronic daily headaches for better part of 3 weeks. Associated with intermittent nausea and rare vomiting. Nausea comes in waves throughout the day. Headache is worse when she bends over and stands back up. She does appreciate a lot of pressure behind her eyes and in both temporal aspects of the scalp. Headache appears to be bilateral. No change in balance. No visual acuity changes. Examination reveals a right serous otitis media marked swelling of the right middle and superior turbinates occluding the superior aspect of the right naris. There is also semiocclusive swelling of the left nares as well. No cervical adenopathy lungs are clear to all station percussion. Plan she will have CT of the maxillofacial sinuses performed. - Re-Assessments/Exams Free Text/Narrative Re-Assessment/Exam: 10/16/20 06:04 CT of the maxillofacial sinuses reveals advanced sinus disease particular in the left maxillary and right maxillary sinuses. She has a significant deviated nasal septum to the right side which is causing occlusive disease of the right nasopharynx. There is increased ethmoidal and sphenoid sinusitis the left side. I am going to place her therefore on antibiotic doxycycline 100 mg twice daily for the next 21 days to clear up sinus infection. Prednisone 20 mg twice daily for 6 days then 1 tab in the morning only for another 6 days to reduce inflammation and swelling of the sinuses. Zofran 4 mg under the tongue every 6 hours as necessary for nausea relief. Claritin-D 12- hour release 1 tablet every morning for the next 6 days to promote sinus drainage. She can continue Motrin and/or Tylenol for headache relief as needed. If problems persist that she may well benefit from ear nose and throat surgeon consultation as she has a severely deformed nasal septum deviated to the right side which is occluding drainage of the sinus in the right side. Departure - Departure Time of Disposition: 06:07 Disposition: Home, Self-Care 01 Condition: Fair Clinical Impression: New daily persistent headache, Acute pansinusitis, unspecified - Discharge Information *PRESCRIPTION DRUG MONITORING PROGRAM REVIEWED*: Not Applicable *COPY OF PRESCRIPTION DRUG MONITORING REPORT IN PATIENT ELI: Not Applicable Prescriptions: Loratadine/Pseudoephedrine [Claritin-D 12 Hour] 1 tab PO Q12HR #6 tab.er Meloxicam 15 mg PO DAILY #10 tablet predniSONE [Prednisone] 20 mg PO ASDIRECTED #18 tablet Doxycycline [Vibra-Tabs] 100 mg PO Q12HR #42 tab Ondansetron [Zofran] 4 mg BUCCAL Q6H PRN #12 tab PRN Reason: nausea or vomiting Referrals: Shantel Brandon MD [Primary Care Provider] - Forms: ED Department Discharge, ED Return to Work/School Form Additional Instructions: Evaluation in the emergency room this morning in regards to persistent daily headache for the last 3 weeks with associated worsening of headache when bending over and appreciable nasal congestion. Awareness of some degree of postnasal drip and nausea associated with the severity of the headaches. Examination reveals fluid behind your right eardrum indicating middle ear fluid that is not able to drain properly down the eustachian tube to the back of the nose. The left side was normal. Inspection of your nose reveals a significant deviated nasal septum on the right side occluding the right side of your nose and thus drainage from the maxillary sinuses. CT of the maxillofacial sinuses done today reveals advanced we call pansinusitis. There is near complete occlusion of the left maxillary sinus. Three-quarter occlusion of the right maxillary sinus. Significant disease involving the ethmoid and sphenoid sinuses which are behind the nose deep in the skull. Suggest treatment to be meloxicam 15 mg tablet once daily every morning to help relieve headaches by reducing pain and inflammation. Steroid prednisone 20 mg in the morning and with supper usually with food for 6 days then once daily in the morning only for another 6 days to help clear up and promote sinus drainage. Antibiotic is to be doxycycline 100 mg twice daily for the next 3 weeks to clear up sinus infection. May use Zofran 4 mg under the tongue every 6 hours as necessary for relief of nausea. Suggest Claritin-D 12- hour release 1 tablet once daily every morning for the next 6 days to promote drainage of the sinuses and thus relief of headache pain. If problems persist after completion of medication suggest follow-up with ear nose and throat surgeon. Sepsis Event Note (ED) - Evaluation Sepsis Screening Result: No Definite Risk - Focused Exam Vital Signs: Vital Signs Temp Pulse Resp BP Pulse Ox 10/16/20 06:08 70 18 100/60 99 10/16/20 05:23 36.6 C 70 19 100/63 97 - My Orders Last 24 Hours: My Active Orders 10/16/20 05:42 Maxillofacial w/o CM [Max Facial Sinus wo Cont] [CT] Stat - Assessment/Plan Last 24 Hours: My Active Orders 10/16/20 05:42 Maxillofacial w/o CM [Max Facial Sinus wo Cont] [CT] Stat
[2020-10-16] MEDS ORDERED: Ondansetron 4 MG Tab.DIS PO ONE (06:03)
--- NOTE | 2020-10-16 08:14 | CT ---
CT facial bones Technique: Multiple axial sections through the facial bones were obtained. Reconstructed coronal and axial images were also obtained. Findings: Mild mucosal thickening is seen within the right maxillary sinus. Moderate mucosal thickening is seen within the left maxillary sinus. Frontal sinuses are underdeveloped. Mild mucosal thickening is noted within the ethmoid sinuses with mild mucosal thickening seen within the sphenoid sinuses. Mild mucosal thickening is noted within the right maxillary ostia. No air-fluid levels are seen. No acute abnormality is noted within the mastoid sinuses. Mild nasal septal deviation is seen. Impression: 1. Mucosal thickening within the paranasal sinuses compatible with chronic appearing sinusitis. 2. Mild nasal septal deviation. 3. Nothing acute is otherwise seen. Diagnostic code #2 I agree with preliminary report from [facility], finalized on 10/16/20, 7:15 AM PER DIEM INTERPRETER
== END 2020-10-16 06:23 | disposition home or self-care (01) ==
LOC: JD.ED 05:14
DX: J01.40 Acute pansinusitis, unspecified (principal); H65.91 Unspecified nonsuppurative otitis media, right ear
CPT/HCPCS: 70486; 99284; A9270

== ENCOUNTER 2021-03-12 06:26 | Emergency (ER) | payer OTHER, MEDICAID ==
[2021-03-12] MEDS ORDERED: Ondansetron 4 MG Tab.DIS PO ONE (07:02)
--- NOTE | 2021-03-12 07:08 | EDM.PDOC ---
ED HPI GENERAL MEDICAL PROBLEM - General Chief Complaint: Gastrointestinal Problem Stated Complaint: NAUSEATED Time Seen by Provider: 03/12/21 06:57 Source of Information: Reports: Patient History Limitations: Reports: No Limitations - History of Present Illness INITIAL COMMENTS - FREE TEXT/NARRATIVE: The patient presents with nausea. This started yesterday. She had to go home early from work. She rested and felt better until she went into work this morning. She had nausea again and needed to go home but they wanted her to get checked out and get a note for work. She has no other symptoms like fever, chills, cough, headache, vomiting, chest pain, shortness of breath, abdominal pain, or dysuria. She does not think she is . She has the depo shot and her doctor thinks that may be making her nauseous. Onset: Gradual Duration: Day(s): (Yesterday) Improves with: Reports: None Worsens with: Reports: None Associated Symptoms: Reports: Nausea/Vomiting. 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: - Infectious Disease History Infectious Disease History: Reports: None - Past Surgical History HEENT Surgical History: Reports: Other (See Below) Other HEENT Surgeries/Procedures: dental abcess Social & Family History - Family History Family Medical History: No Pertinent Family History - Tobacco Use Tobacco Use Status *Q: Unknown Ever Used Tobacco - Caffeine Use Caffeine Use: Reports: Coffee, Energy Drinks, Soda, Tea - Living Situation & Occupation Living situation: Reports: Single Occupation: Employed ED ROS GENERAL - Review of Systems Review Of Systems: See Below Constitutional: Reports: No Symptoms HEENT: Reports: No Symptoms Respiratory: Reports: No Symptoms Cardiovascular: Reports: No Symptoms Endocrine: Reports: No Symptoms GI/Abdominal: Reports: Nausea. Denies: Abdominal Pain, Vomiting : Reports: No Symptoms Musculoskeletal: Reports: No Symptoms ED EXAM, GI/ABD - Physical Exam Exam: See Below Exam Limited By: No Limitations General Appearance: Alert, No Apparent Distress Ears: Normal External Exam Nose: Normal Inspection Head: Atraumatic, Normocephalic Neck: Normal Inspection Respiratory/Chest: No Respiratory Distress, Lungs Clear, Normal Breath Sounds Cardiovascular: Regular Rate, Rhythm, No Edema, No Murmur GI/Abdominal Exam: Soft, Non-Tender, No Organomegaly, No Mass Back Exam: Normal Inspection Extremities: Normal Inspection Course - Vital Signs Last Recorded V/S: Last Vital Signs Temp 97.3 F 03/12/21 06:37 Pulse 66 03/12/21 06:37 Resp 15 03/12/21 06:37 BP 100/61 03/12/21 06:37 Pulse Ox 95 03/12/21 06:37 - Orders/Labs/Meds Orders: Active Orders 24 hr Category Date Time Status Ondansetron [Zofran ODT] Med 03/12/21 07:02 Once 4 mg PO ONETIME ONE - Re-Assessments/Exams Free Text/Narrative Re-Assessment/Exam: 03/12/21 07:07 I ordered a dose of zofran and a prescription for more. Departure - Departure Time of Disposition: 07:10 Disposition: Home, Self-Care 01 Condition: Good Clinical Impression: Nausea - Discharge Information *PRESCRIPTION DRUG MONITORING PROGRAM REVIEWED*: Not Applicable *COPY OF PRESCRIPTION DRUG MONITORING REPORT IN PATIENT ELI: Not Applicable Prescriptions: Ondansetron [Zofran ODT] 4 mg PO Q6H PRN #20 tab.dis PRN Reason: Nausea\vomiting Referrals: Raza Chavis [Primary Care Provider] - Forms: ED Department Discharge, ED Return to Work/School Form Additional Instructions: Drink plenty of fluids. Get some rest today. Take the zofran every 6 hours as needed for nausea and vomiting. Please return if you are worse. Sepsis Event Note (ED) - Evaluation Sepsis Screening Result: No Definite Risk - Focused Exam Vital Signs: Vital Signs Temp Pulse Resp BP Pulse Ox 03/12/21 06:37 97.3 F 66 15 100/61 95 - My Orders Last 24 Hours: My Active Orders 03/12/21 07:02 Ondansetron [Zofran ODT] 4 mg PO ONETIME ONE - Assessment/Plan Last 24 Hours: My Active Orders 03/12/21 07:02 Ondansetron [Zofran ODT] 4 mg PO ONETIME ONE
== END 2021-03-12 07:59 | disposition home or self-care (01) ==
LOC: JD.ED 06:26
DX: R11.0 Nausea (principal)
CPT/HCPCS: 99283; A9270

== ENCOUNTER 2021-08-17 12:07 | Emergency (ER) | payer SELFPAY ==
[2021-08-17] MEDS ORDERED: Benzonatate 100 MG Cap PO ONE (12:36)
[2021-08-17] MEDS ORDERED: Sodium Chloride 0.9% 10 ML Syringe FLUSH PRN (12:36)
[2021-08-17 13:14] LABS: CORONAVIRUS COVID-19 NAA POSITIVE (NEGATIVE)
--- NOTE | 2021-08-17 13:35 | CR ---
Chest: Frontal view of the chest was obtained. Comparison: Prior chest x-ray of 10/10/19. Heart size and mediastinum are within normal limits. Lungs are clear with no acute parenchymal change. Bony structures show nothing acute. Impression: 1. Nothing acute is seen on frontal chest x-ray. Diagnostic code #1
[2021-08-17] MEDS ORDERED: EPINEPHrine 1 MG/ML SDV IM PRN (14:30)
[2021-08-17] MEDS ORDERED: diphenhydrAMINE 50 MG/ML SDV IVPUSH PRN (14:30)
[2021-08-17] MEDS ORDERED: methylPREDNISolone Sodium Succinate 125 MG/2 ML SDV IVPUSH PRN (14:30)
[2021-08-17] MEDS ORDERED: Famotidine 20 MG/2 ML SDV IVPUSH PRN (14:30)
[2021-08-17] MEDS ORDERED: Sodium Chloride 0.9% 10 ML Syringe FLUSH SCH (14:30)
--- NOTE | 2021-08-17 14:33 | EDM.PDOC ---
ED HPI GENERAL MEDICAL PROBLEM - General Chief Complaint: Respiratory Problem Stated Complaint: COUGH Time Seen by Provider: 08/17/21 12:16 Source of Information: Reports: Patient History Limitations: Reports: No Limitations - History of Present Illness INITIAL COMMENTS - FREE TEXT/NARRATIVE: 26-year-old female presents the emergency department today with complaints of cough, decreased appetite, nausea, fever, chills and body aches that started approximately 9 days ago. She states that symptoms are progressively getting worse. She did not have her Covid vaccine nor did she have her influenza vaccine. She denies smoking history. She states she is otherwise healthy. Throat Pain Score (Numeric/FACES): 9 Headache Pain Score (Numeric/FACES): 7 - Related Data Allergies Allergy/AdvReac Type Severity Reaction Status Date / Time No Known Allergies Allergy Verified 03/12/21 06:34 Home Meds: Home Meds Ondansetron [Zofran ODT] 4 mg PO Q6H PRN #20 tab.dis 03/12/21 [Rx] Cyclobenzaprine [Flexeril] 5 mg PO Q12H PRN 08/17/21 [History] Past Medical History - Past Health History Medical/Surgical History: Denies Medical/Surgical History HEENT History: Reports: Otitis Media [employer] History: Reports: Neurological History: Reports: Other (See Below) Other Neuro History: headaches - Infectious Disease History Infectious Disease History: Reports: Novel Coronavirus Other Infectious Disease History: 08-17-21 COVID diagnosis - Past Surgical History HEENT Surgical History: Reports: Other (See Below) Other HEENT Surgeries/Procedures: dental abcess Social & Family History - Family History Family Medical History: No Pertinent Family History - Tobacco Use Tobacco Use Status *Q: Never Tobacco User - Caffeine Use Caffeine Use: Reports: Coffee, Energy Drinks, Tea - Recreational Drug Use Recreational Drug Type: Reports: Marijuana/Hashish - Living Situation & Occupation Living situation: Reports: Single Occupation: Employed ED ROS GENERAL - Review of Systems Review Of Systems: Comprehensive ROS is negative, except as noted in HPI. ED EXAM, GENERAL - Physical Exam Exam: See Below Exam Limited By: No Limitations General Appearance: Alert, WD/WN, No Apparent Distress Ears: Normal External Exam, Hearing Grossly Normal Nose: Normal Inspection Throat/Mouth: Normal Inspection, Normal Lips, Normal Voice, No Airway Compromise Head: Atraumatic Neck: Normal Inspection, Supple Respiratory/Chest: No Respiratory Distress, Lungs Clear, Normal Breath Sounds, No Accessory Muscle Use, Chest Non-Tender Cardiovascular: Normal Peripheral Pulses, Regular Rate, Rhythm, No Edema, No Murmur Peripheral Pulses: 2+: Radial (L), Radial (R) GI/Abdominal: Normal Bowel Sounds, Soft, Non-Tender, No Distention (Female) Exam: Deferred Rectal (Female) Exam: Deferred Back Exam: Normal Inspection Extremities: Normal Inspection Neurological: Alert, Oriented, Normal Cognition Psychiatric: Normal Affect, Normal Mood Skin Exam: Warm, Dry, Intact, Normal Color, No Rash Lymphatic: No Adenopathy Course - Vital Signs Text/Narrative:: As stated above, patient presents with 9-day history of Covid-like symptoms. Physical exam is essentially unremarkable. Patient is hemodynamically stable. Patient will be tested for Covid and will obtain lab studies. Obtain portable chest x-ray. Last Recorded V/S: Last Vital Signs Temp 98.3 F 08/17/21 16:15 Pulse 70 08/17/21 16:30 Resp 18 08/17/21 16:30 BP 102/61 08/17/21 16:30 Pulse Ox 98 08/17/21 16:30 - Orders/Labs/Meds Orders: Active Orders 24 hr Category Date Time Status Vital Signs [RC] Q15M Care 08/17/21 14:30 Active EPINEPHrine [Adrenalin] Med 08/17/21 14:30 Active 0.3 mg IM ASDIRECTED PRN Famotidine [Pepcid] Med 08/17/21 14:30 Active 20 mg IVPUSH ASDIRECTED PRN Sodium Chloride 0.9% [Saline Flush] Med 08/17/21 12:36 Active 10 ml FLUSH ASDIRECTED PRN Sodium Chloride 0.9% [Saline Flush] Med 08/17/21 14:30 Active 30 ml FLUSH ASDIRECTED diphenhydrAMINE [Benadryl] Med 08/17/21 14:30 Active 50 mg IVPUSH ASDIRECTED PRN methylPREDNISolone Sod Succ [Solu-MEDROL] Med 08/17/21 14:30 Active 125 mg IVPUSH ASDIRECTED PRN Saline Lock Insert [OM.PC] Stat Oth 08/17/21 12:36 Ordered Medication Orders Diphenhydramine HCl (Diphenhydramine 50 Mg/Ml Sdv) 50 mg IVPUSH ASDIRECTED PRN PRN Reason: hypersensitivity reaction Epinephrine HCl (Epinephrine 1 Mg/Ml Sdv) 0.3 mg IM ASDIRECTED PRN PRN Reason: hypersensitivity reaction Famotidine (Famotidine 20 Mg/2 Ml Sdv) 20 mg IVPUSH ASDIRECTED PRN PRN Reason: hypersensitivity reaction Methylprednisolone Sodium Succinate (Methylprednisolone Sodium Succinate 125 Mg/2 Ml Sdv) 125 mg IVPUSH ASDIRECTED PRN PRN Reason: hypersensitivity reaction Sodium Chloride (Sodium Chloride 0.9% 10 Ml Syringe) 10 ml FLUSH ASDIRECTED PRN PRN Reason: Keep Vein Open Last Admin: 08/17/21 12:54 Dose: 10 ml Documented by: JUAREZ Sodium Chloride (Sodium Chloride 0.9% 10 Ml Syringe) 30 ml FLUSH ASDIRECTED CHELSEA Labs: Laboratory Tests 08/17/21 08/17/21 08/17/21 Range/Units 12:29 12:52 12:52 WBC 6.40 (3.98-10.04) K/mm3 RBC 5.00 (3.98-5.22) M/mm3 Hgb 14.8 (11.2-15.7) gm/dl Hct 45.0 H (34.1-44.9) % MCV 90.0 (79.4-94.8) fl MCH 29.6 (25.6-32.2) pg MCHC 32.9 (32.2-35.5) g/dl RDW Std Deviation 42.0 (36.4-46.3) fL Plt Count 270 (182-369) K/mm3 MPV 10.4 (9.4-12.3) fl Neut % (Auto) 57.9 (34.0-71.1) % Lymph % (Auto) 28.4 (19.3-51.7) % [place] % (Auto) 9.5 (4.7-12.5) % Eos % (Auto) 3.4 (0.7-5.8) Baso % (Auto) 0.5 (0.1-1.2) % Neut # (Auto) 3.70 (1.56-6.13) K/mm3 Lymph # (Auto) 1.82 (1.18-3.74) K/mm3 [place] # (Auto) 0.61 H (0.24-0.36) K/mm3 Eos # (Auto) 0.22 (0.04-0.36) K/mm3 Baso # (Auto) 0.03 (0.01-0.08) K/mm3 D-Dimer, Quantitative < 0.19 L (0.19-0.50) mg/L Sodium (136-145) mEq/L Potassium (3.5-5.1) mEq/L Chloride (98-107) mEq/L Carbon Dioxide (21-32) mEq/L Anion Gap (5-15) BUN (7-18) mg/dL Creatinine (0.55-1.02) mg/dL Est Cr Clr Drug Dosing mL/min Estimated GFR (MDRD) (>60) mL/min BUN/Creatinine Ratio (14-18) Glucose (70-99) mg/dL Calcium (8.5-10.1) mg/dL Magnesium (1.8-2.4) mg/dL Total Bilirubin (0.2-1.0) mg/dL AST (15-37) U/L ALT (14-59) U/L Alkaline Phosphatase (46-116) U/L C-Reactive Protein (<1.0) mg/dL Total Protein (6.4-8.2) g/dl Albumin (3.4-5.0) g/dl Globulin gm/dL Albumin/Globulin Ratio (1-2) Influenza Type A RNA Negative (NEGATIVE) RSV RNA (INAAT) Negative (NEGATIVE) Influenza Type B RNA Negative (NEGATIVE) SARS-CoV-2 RNA (VIDAL) Positive H (NEGATIVE) 08/17/21 Range/Units 12:52 WBC (3.98-10.04) K/mm3 RBC (3.98-5.22) M/mm3 Hgb (11.2-15.7) gm/dl Hct (34.1-44.9) % MCV (79.4-94.8) fl MCH (25.6-32.2) pg MCHC (32.2-35.5) g/dl RDW Std Deviation (36.4-46.3) fL Plt Count (182-369) K/mm3 MPV (9.4-12.3) fl Neut % (Auto) (34.0-71.1) % Lymph % (Auto) (19.3-51.7) % [place] % (Auto) (4.7-12.5) % Eos % (Auto) (0.7-5.8) Baso % (Auto) (0.1-1.2) % Neut # (Auto) (1.56-6.13) K/mm3 Lymph # (Auto) (1.18-3.74) K/mm3 [place] # (Auto) (0.24-0.36) K/mm3 Eos # (Auto) (0.04-0.36) K/mm3 Baso # (Auto) (0.01-0.08) K/mm3 D-Dimer, Quantitative (0.19-0.50) mg/L Sodium 142 (136-145) mEq/L Potassium 3.8 (3.5-5.1) mEq/L Chloride 105 (98-107) mEq/L Carbon Dioxide 26 (21-32) mEq/L Anion Gap 14.8 (5-15) BUN 12 (7-18) mg/dL Creatinine 0.7 (0.55-1.02) mg/dL Est Cr Clr Drug Dosing 86.71 mL/min Estimated GFR (MDRD) > 60 (>60) mL/min BUN/Creatinine Ratio 17.1 (14-18) Glucose 93 (70-99) mg/dL Calcium 8.7 (8.5-10.1) mg/dL Magnesium 1.9 (1.8-2.4) mg/dL Total Bilirubin 0.3 (0.2-1.0) mg/dL AST 14 L (15-37) U/L ALT 20 (14-59) U/L Alkaline Phosphatase 66 (46-116) U/L C-Reactive Protein <0.2 (<1.0) mg/dL Total Protein 7.4 (6.4-8.2) g/dl Albumin 4.0 (3.4-5.0) g/dl Globulin 3.4 gm/dL Albumin/Globulin Ratio 1.2 (1-2) Influenza Type A RNA (NEGATIVE) RSV RNA (INAAT) (NEGATIVE) Influenza Type B RNA (NEGATIVE) SARS-CoV-2 RNA (VIDAL) (NEGATIVE) Meds: Medications Generic Name Dose Route Start Last Admin Trade Name Freq PRN Reason Stop Dose Admin Diphenhydramine HCl 50 mg 08/17/21 14:30 Diphenhydramine 50 Mg/Ml Sdv IVPUSH ASDIRECTED PRN hypersensitivity reaction Epinephrine HCl 0.3 mg 08/17/21 14:30 Epinephrine 1 Mg/Ml Sdv IM ASDIRECTED PRN hypersensitivity reaction Famotidine 20 mg 08/17/21 14:30 Famotidine 20 Mg/2 Ml Sdv IVPUSH ASDIRECTED PRN hypersensitivity reaction Methylprednisolone Sodium Succinate 125 mg 08/17/21 14:30 Methylprednisolone Sodium Succinate 125 Mg/2 Ml Sdv IVPUSH ASDIRECTED PRN hypersensitivity reaction Sodium Chloride 10 ml 08/17/21 12:36 08/17/21 12:54 Sodium Chloride 0.9% 10 Ml Syringe FLUSH 10 ml ASDIRECTED PRN Administration Keep Vein Open Sodium Chloride 30 ml 08/17/21 14:30 Sodium Chloride 0.9% 10 Ml Syringe FLUSH ASDIRECTED CHELSEA Discontinued Medications Generic Name Dose Route Start Last Admin Trade Name Freq PRN Reason Stop Dose Admin Benzonatate 100 mg 08/17/21 12:36 08/17/21 12:54 Benzonatate 100 Mg Cap PO 08/17/21 12:37 100 mg ONETIME ONE Administration SOTROVIMAB 500 mg/ Sodium 108 mls @ 216 mls/hr 08/17/21 15:15 08/17/21 15:16 Chloride IV 08/17/21 15:44 216 mls/hr ONETIME ONE Administration - Re-Assessments/Exams Free Text/Narrative Re-Assessment/Exam: 08/17/21 14:29 Hematology is essentially unremarkable Coagulation reveals a D-dimer of less than 0.19 Chemistry is essentially unremarkable, C-reactive protein less than 0.2 Serology reveals influenza a and B are negative however Covid test is positive Radiologist impression frontal view of the chest: 1. Nothing acute is seen on frontal chest x-ray I spoke with the patient to provide information about Sotrovimab for herself. I offered her the fax sheet for patients and caregivers for Sotrovimab to read and review. I stated the therapy has been approved by an emergency use authorization process and has not fully been FDA reviewed or approved. I shared the potential risks from the therapy including risks/adverse reactions. I discussed there are other potential treatment options that are currently not FDA approved to treat COVID-19. Offered opportunity ask questions and all questions were answered. Patient voiced understanding and agreed to proceed with treatment for herself. 08/17/21 17:28 Patient tolerated antibody treatment well and has been monitored for 1 hour after. She will be discharged home. Departure - Departure Time of Disposition: 17:28 Disposition: Home, Self-Care 01 Condition: Good Clinical Impression: COVID-19 - Discharge Information Instructions: How to Protect Yourself and Others - [facility] (04/03/2021), 10 Things You Can Do to Manage Your COVID-19 Symptoms at Home - [facility] (03/06/2021), COVID- 19: Quarantine vs. Isolation - [facility] (08/07/2020) Referrals: Shantel Brandon MD [Primary Care Provider] - Forms: ED Department Discharge Additional Instructions: You were seen in the emergency department today with Covid-like symptoms. Covid test was positive. Lab studies were also completed which were essentially unremarkable. You did elect to receive antibody treatment. You likely will start to feel better in the next couple of days. Keep in mind that you do need to quarantine for 10 days time from the onset of your symptoms as you are contagious for 10 days. Recommend going home and get plenty of rest, drink plenty of fluids and eat small frequent meals. Should your condition worsen or change, do not hesitate returning to the emergency department. Sepsis Event Note (ED) - Focused Exam Vital Signs: Vital Signs Temp Pulse Resp BP Pulse Ox 08/17/21 16:30 70 18 102/61 98 08/17/21 16:15 98.3 F 76 18 95/67 97 08/17/21 16:00 77 18 104/74 100 08/17/21 15:45 89 18 99/69 99 08/17/21 15:30 74 18 114/70 98 08/17/21 15:20 98.6 F 77 18 102/72 98 08/17/21 12:24 97.7 F 74 20 99/61 100 - My Orders Last 24 Hours: My Active Orders 08/17/21 12:36 Sodium Chloride 0.9% [Saline Flush] 10 ml FLUSH ASDIRECTED PRN Saline Lock Insert [OM.PC] Stat 08/17/21 14:30 Vital Signs [RC] Q15M EPINEPHrine [Adrenalin] 0.3 mg IM ASDIRECTED PRN Famotidine [Pepcid] 20 mg IVPUSH ASDIRECTED PRN Sodium Chloride 0.9% [Saline Flush] 30 ml FLUSH ASDIRECTED diphenhydrAMINE [Benadryl] 50 mg IVPUSH ASDIRECTED PRN methylPREDNISolone Sod Succ [Solu-MEDROL] 125 mg IVPUSH ASDIRECTED PRN - Assessment/Plan Last 24 Hours: My Active Orders 08/17/21 12:36 Sodium Chloride 0.9% [Saline Flush] 10 ml FLUSH ASDIRECTED PRN Saline Lock Insert [OM.PC] Stat 08/17/21 14:30 Vital Signs [RC] Q15M EPINEPHrine [Adrenalin] 0.3 mg IM ASDIRECTED PRN Famotidine [Pepcid] 20 mg IVPUSH ASDIRECTED PRN Sodium Chloride 0.9% [Saline Flush] 30 ml FLUSH ASDIRECTED diphenhydrAMINE [Benadryl] 50 mg IVPUSH ASDIRECTED PRN methylPREDNISolone Sod Succ [Solu-MEDROL] 125 mg IVPUSH ASDIRECTED PRN
== END 2021-08-17 17:41 | disposition home or self-care (01) ==
LOC: JD.ED 12:07
DX: U07.1 COVID-19 (principal)
CPT/HCPCS: 0241U; 36415; 71045; 80053; 83735; 85025; 85379; 86140; 99283; A9270; M0247; Q0247

== ENCOUNTER 2021-11-30 13:39 | Emergency (ER) | payer MEDICAID, OTHER ==
[2021-11-30] MEDS ORDERED: Bacitracin Oint 15 GM Tube TOP ONE (13:59)
== END 2021-11-30 14:18 | disposition home or self-care (01) ==
LOC: JD.ED 13:39
DX: T22.111A Burn of first degree of right forearm, initial encounter (principal); Z86.16 Personal history of COVID-19; X10.1XXA Contact with hot food, initial encounter
CPT/HCPCS: 99283; A9270; 99282